=== PATIENT | female | born 1960 | race Hispanic/Latino ===

== ENCOUNTER 2023-04-12 05:40 | Emergency (ER) | payer OTHER ==
[~2023-04-12] VITALS: Ht 160 cm; Wt 67.1 kg
[~2023-04-12 05:40] MED LIST: ALPRAZOLAM0.25 MG PO; FENOFIBRATE145 MG PO
[2023-04-12 07:13] VITALS: O2SAT 100
[2023-04-12] MEDS ORDERED: ALBUTEROL2.5 MG/0.5 PO (19:28)
[2023-04-12] MEDS ORDERED: FLONASE ALLERG9.9 ML INH (19:28)
== END 2023-04-12 07:42 | disposition home or self-care (01) ==
LOC: ER 05:49
DX: J02.9 Acute pharyngitis, unspecified (principal); J06.9 Acute upper respiratory infection, unspecified; Z20.822 Contact with and (suspected) exposure to COVID-19
CPT/HCPCS: 71045; 83518; 87070; 99284; U0002

== ENCOUNTER 2023-04-12 16:50 | Emergency (ER) | payer OTHER ==
[~2023-04-12] VITALS: Ht 160 cm; Wt 67.1 kg
[2023-04-12 17:33] LABS: BASOPHILS % 0.2 % (0.0-1.0); EOSINOPHILS # (AUTO) 0.1 (0.0-0.4); EOSINOPHILS % 0.5 % (0.0-6.0); HEMATOCRIT 41.8 % (34.2-44.1); LYMPHOCYTES # (AUTO) 1.7 (1.0-3.2); MEAN CORPUSCULAR HGB CONC 33.5 g/dL (31-35); MEAN CORPUSCULAR VOLUME 89.7 fL (81-99); MONOCYTES % 6.3 % (4.4-11.3); NEUTROPHILS # (AUTO) 12.3 (2.1-6.9); NEUTROPHILS % 81.7 % (38.7-80.0); PLATELET COUNT 286 x10e3/uL (140-360); RED BLOOD COUNT 4.66 x10e6/uL (3.6-5.1); RED CELL DISTRIBUTION WIDTH 12.7 % (11.7-14.4)
[2023-04-12 17:54] LABS: ALBUMIN 4.4 g/dL (3.5-5.0); ALBUMIN/GLOBULIN RATIO 1.3 (0.8-2.0); ANION GAP 14.7 mmol/L (8-16); CALCIUM 9.7 mg/dL (8.4-10.2); CREATININE, SERUM 0.71 mg/dL (0.57-1.11); POTASSIUM 3.7 mmol/L (3.5-5.1)
[2023-04-12] MEDS ORDERED: DEXAMETHASONE SOD PHOS INJ 4 MG/ML SDV IV ONE (18:00)
[2023-04-12] MEDS ORDERED: IOPAMIDOL 370 MG/ML 100 ML INFUS..BTL INJ ONE (18:10)
[2023-04-12] MEDS ORDERED: EPINEPHRINE HCL 1:1000 1ML 1 MG/ML AMP INJ ONE (18:15)
[2023-04-12] MEDS ORDERED: SODIUM CHLORIDE 0.9% 1000ML 1,000 ML IV ONE (18:15)
[2023-04-12] MEDS ORDERED: DEXAMETHASONE SOD PHOS INJ 4 MG/ML SDV ONE (18:15)
[2023-04-12] MEDS ORDERED: ALBUTEROL2.5 MG/0.5 PO (19:28)
[2023-04-12] MEDS ORDERED: FLONASE ALLERG9.9 ML INH (19:28)
[2023-04-12 20:08] VITALS: BP 134/85; PULSE 94; RESP 16; O2SAT 99
== END 2023-04-12 20:20 | disposition home or self-care (01) ==
LOC: ER 16:59
DX: R05.9 Cough, unspecified (principal); J06.9 Acute upper respiratory infection, unspecified
CPT/HCPCS: 36415; 70491; 80053; 83605; 85025; 86308; 87040; 99284; J0171; J0696; J1100; J7030; Q9967